=== PATIENT | male | born 1990 | race Caucasian/White ===

== ENCOUNTER 2025-05-01 12:11 | Emergency (ER) | payer MEDICAID ==
[~2025-05-01] VITALS: Ht 162.6 cm; Wt 73.0 kg
[2025-05-01 12:19] VITALS: BP 119/52; PULSE 84; RESP 16; TEMP 98.6; O2SAT 99
== END 2025-05-01 12:25 | disposition left against medical advice (07) ==
LOC: ER 12:11
DX: M25.519 Pain in unspecified shoulder (principal); Z53.21 Procedure and treatment not carried out due to patient leaving prior to being seen by health care provider
CPT/HCPCS: 99281